=== PATIENT | male | born 1950 | race Caucasian/White ===

== ENCOUNTER 2019-03-01 17:53 | Emergency (ER) | payer MEDICARE, MEDICAID ==
[~2019-03-01] VITALS: Ht 165.1 cm; Wt 73.9 kg
[2019-03-01 18:12] VITALS: BP 122/77
--- NOTE | 2019-03-01 18:18 | NUR ---
TO LOBBY A/W BED AMBULATORY
--- NOTE | 2019-03-01 20:14 | NUR ---
DR. MCDANIEL AT BEDSIDE EXAMINING PATIENT.
--- NOTE | 2019-03-01 20:30 | NUR ---
69 Y/O MALE PRESENTS TO ED, C/O COUGHING X5 DAYS. NON PRODUCTIVE COUGH. LUNG SOUNDS BILAT CLEAR. NO SOB/DIFFICULTY BREATHING NOTED. PT C/O BACK PAIN 09/12 X1 MONTH. ABLE TO AMBULATE WITH STEADY GAIT. PAIN DOES NOT RADIATE. DENIES TAKING ANY MEDICATIONS FOR PAIN. PT VSS. ERMD AWARE. WILL CONTINUE TO MONITOR.
[2019-03-01 20:57] VITALS: BP 122/77
--- NOTE | 2019-03-01 20:57 | NUR ---
Patient discharged with v/s stable. Written and verbal after care instructions given and explained. Patient alert, oriented and verbalized understanding of instructions. Ambulatory with steady gait. All questions addressed prior to discharge. ID band removed. Patient advised to follow up with PMD. Rx of promethazine, tamiflu given. Patient educated on indication of medication including possible reaction and side effects. Opportunity to ask questions provided and answered.
== END 2019-03-01 20:57 | disposition home or self-care (01) ==
LOC: MED 17:53
DX: J11.1 Influenza due to unidentified influenza virus with other respiratory manifestations (principal); Z86.73 Personal history of transient ischemic attack (TIA), and cerebral infarction without residual deficits
CPT/HCPCS: 71045; 99283

== ENCOUNTER 2019-04-13 12:18 | Emergency (ER) | payer MEDICARE, MEDICAID ==
[~2019-04-13] VITALS: Ht 170.2 cm; Wt 72.6 kg
[2019-04-13 12:44] VITALS: BP 124/69
--- NOTE | 2019-04-13 12:49 | NUR ---
PT AMB TO BED 2.
--- NOTE | 2019-04-13 13:08 | NUR ---
69YO M C/O NON-PRODUCTIVE COUGH AND RUNNY NOSE X 2 DAYS. PT TOOK TYLENOL WHICH PROVIDED NO RELIEF. DENIES FEVER, H/A, N/V/D. VSS. CBS ON ALL LUNG MARCOS. PT IS RESTING COMFORTABLY IN BED, SIDERAILS UP. ER MADE AWARE OF PT STATUS. NKA PMH: DM, STROKE MEDS: KEPPRA, METFORMIN, ASPIRIN
[2019-04-13 13:59] VITALS: BP 122/62
--- NOTE | 2019-04-13 14:00 | NUR ---
Patient discharged with v/s stable. Written and verbal after care instructions given and explained. Patient alert, oriented and verbalized understanding of instructions. Ambulatory with steady gait. All questions addressed prior to discharge. ID band removed. Patient advised to follow up with PMD. Rx of HIRO,FLONASE,PRENISONE,PROMETHAZINE given. Patient educated on indication of medication including possible reaction and side effects. Opportunity to ask questions provided and answered.
== END 2019-04-13 14:33 | disposition home or self-care (01) ==
LOC: MED 12:18
DX: J30.2 Other seasonal allergic rhinitis (principal); E11.9 Type 2 diabetes mellitus without complications; Z86.73 Personal history of transient ischemic attack (TIA), and cerebral infarction without residual deficits
CPT/HCPCS: 71045; 99283; Q0092